=== PATIENT | female | born 1995 | race Caucasian/White ===

== ENCOUNTER 2016-09-20 13:10 | Emergency (ER) | payer OTHER ==
[2016-09-20] MEDS ORDERED: ACETAMINOPHEN IV (For NPO) 1,000 MG in EMPTY BAG 1 BAG IVPB STA (14:09)
--- NOTE | 2016-09-20 14:19 | ED ---
Female Urogenital HPI - General Chief complaint: Vaginal Bleeding Stated complaint: Vaginal Bleeding, Pelvic Pain Time Seen by Provider: 09/20/16 14:02 Source: patient, RN notes reviewed Mode of arrival: ambulatory Limitations: no limitations - History of Present Illness Initial comments: 21-year-old female presents to the emergency department with a chief complaint of fever and vaginal bleeding. Patient states that she had not had a menstrual cycle in about 5 months. Patient states that she went to the [facility] and they scheduled to have an ultrasound of her condition that she may has PCL last. Patient states this when she woke up she had low back pain she did have some changes in urination and she noticed a fever. Patient states she also has had a lot of vaginal bleeding she states she is going through a super tampon about every hour. Patient denies any lightheadedness or dizziness with this. Patient states she's never had a. This heavy before. Patient states the belly pain and back pain could be related to cramping versus something else. Patient states the fever started today she is not aware that came from [place]. Patient was concerned due to the increased bleeding that she called her OB and they referred her here. Patient denies any other significant health history. Patient denies any recent shortness of breath, chest pain, nausea vomiting, numbness or tingling, hematuria, constipation or diarrhea, headaches or visual changes, or any other current symptoms. Last Menstrual Period: 05/31/16 - Related Data Home Medications Medication Instructions Recorded Confirmed Ibuprofen [Motrin] 400 mg PO Q6HR PRN 09/20/16 09/20/16 Allergies Allergy/AdvReac Type Severity Reaction Status Date / Time No Known Allergies Allergy Verified 09/20/16 13:49 Review of Systems ROS Statement: Those systems with pertinent positive or pertinent negative responses have been documented in the HPI. ROS Other: All systems not noted in ROS Statement are negative. Past Medical History Past Medical History: No Reported History History of Any Multi-Drug Resistant Organisms: None Reported Past Surgical History: No Surgical Hx Reported Past Psychological History: No Psychological Hx Reported Smoking Status: Never smoker Past Alcohol Use History: Occasional Past Drug Use History: None Reported General Exam - General Exam Comments Initial Comments: General: The patient is awake and alert, in no distress, and does not appear acutely ill. Eye: Pupils are equal, round and reactive to light, extra-ocular movements are intact; there is normal conjunctiva bilaterally. No signs of icterus. Ears, nose, mouth and throat: There are moist mucous membranes. Neck: The neck is supple, there is no tenderness. Cardiovascular: There is a regular rate and rhythm. No murmur, rub or gallop is appreciated. Respiratory: Lungs are clear to auscultation, respirations are non-labored, breath sounds are equal. No wheezes, stridor, rales, or rhonchi. Gastrointestinal: Soft, non-distended, non-tender abdomen without masses or organomegaly noted. There is no rebound or guarding present. bilateral CVA tenderness. Bowel sounds are unremarkable. Back: There is no tenderness to palpation in the midline. There is no obvious deformity. No rashes noted. Musculoskeletal: Normal ROM, no tenderness, There is no pedal edema. There is no calf tenderness or swelling. Sensation intact. Pulses equal bilaterally 2+. Neurological: CN II-XII intact, There are no obvious motor or sensory deficits. Coordination appears grossly intact. Speech is normal. Skin: Skin is warm and dry and no rashes or lesions are noted. Psychiatric: Cooperative, appropriate mood & affect, normal judgment. Limitations: no limitations Course Vital Signs 09/20/16 09/20/16 13:24 16:21 Temperature 98.6 F 98.7 F Pulse Rate 61 67 Respiratory 17 20 Rate Blood Pressure 130/87 129/86 O2 Sat by Pulse 97 98 Oximetry Medical Decision Making - Medical Decision Making 21-year-old female presents to the emergency department with a chief complaint of vaginal bleeding this time patient's lab work is reviewed. Patient has a stable hemoglobin stable vital signs. Patient has been afebrile during the emergency department however she admits to fever at home. Urinalysis negative. Liver there is no suspicion for abdominal cause for the patient's fever. It has been months as well. At this time we did discuss that her vaginal bleeding could be from the ovarian cyst versus cyst and irregular menstrual cycle. We discussed. With her [facility] and metastatic disease for repeat ultrasound. We discussed all the patient's family's questions. The plan and everything has been answered. At this time they will be discharged home. - Lab Data Result diagrams: 09/20/16 14:50 09/20/16 14:50 Lab Results 09/20/16 09/20/16 09/20/16 Range/Units 14:50 14:50 14:50 WBC 8.9 (3.8-10.6) k/uL RBC 4.55 (3.80-5.40) m/uL Hgb 13.1 (11.4-16.0) gm/dL Hct 38.6 (34.0-46.0) % MCV 84.8 (80.0-100.0) fL MCH 28.9 (25.0-35.0) pg MCHC 34.1 (31.0-37.0) g/dL RDW 12.7 (11.5-15.5) % Plt Count 317 (150-450) k/uL Neutrophils % 68 % Lymphocytes % 22 % Monocytes % 6 % Eosinophils % 1 % Basophils % 1 % Neutrophils # 6.1 (1.3-7.7) k/uL Lymphocytes # 2.0 (1.0-4.8) k/uL Monocytes # 0.5 (0-1.0) k/uL Eosinophils # 0.1 (0-0.7) k/uL Basophils # 0.0 (0-0.2) k/uL Sodium 140 (137-145) mmol/L Potassium 3.8 (3.5-5.1) mmol/L Chloride 106 (98-107) mmol/L Carbon Dioxide 23 (22-30) mmol/L Anion Gap 11 mmol/L BUN 12 (7-17) mg/dL Creatinine 0.67 (0.52-1.04) mg/dL Est GFR (MDRD) Af Amer >60 (>60 ml/min/1.73 sqM) Est GFR (MDRD) Non-Af >60 (>60 ml/min/1.73 sqM) Glucose 84 (74-99) mg/dL Calcium 9.3 (8.4-10.2) mg/dL Total Bilirubin 0.6 (0.2-1.3) mg/dL AST 26 (14-36) U/L ALT 36 (9-52) U/L Alkaline Phosphatase 97 (38-126) U/L Total Protein 7.6 (6.3-8.2) g/dL Albumin 4.2 (3.5-5.0) g/dL Urine Color Urine Appearance (Clear) Urine pH (5.0-8.0) Ur Specific Interior (1.001-1.035) Urine Protein (Negative) Urine Glucose (UA) (Negative) Urine Ketones (Negative) Urine Blood (Negative) Urine Nitrate (Negative) Urine Bilirubin (Negative) Urine Urobilinogen (<2.0) mg/dL Ur Leukocyte Esterase (Negative) Urine RBC (0-5) /hpf Urine WBC (0-5) /hpf Ur Squamous Epith Cells (0-4) /hpf Urine HCG, Qual (Not Detectd) Influenza Type A RNA (Not Detectd) Influenza Type B (PCR) (Not Detectd) Blood Type O Positive Blood Type Recheck No Antibody Screen NEGATIVE Spec Expiration Date 09/23/2016 - 234909/20/16 09/20/16 09/20/16 Range/Units 15:00 15:00 16:14 WBC (3.8-10.6) k/uL RBC (3.80-5.40) m/uL Hgb (11.4-16.0) gm/dL Hct (34.0-46.0) % MCV (80.0-100.0) fL MCH (25.0-35.0) pg MCHC (31.0-37.0) g/dL RDW (11.5-15.5) % Plt Count (150-450) k/uL Neutrophils % % Lymphocytes % % Monocytes % % Eosinophils % % Basophils % % Neutrophils # (1.3-7.7) k/uL Lymphocytes # (1.0-4.8) k/uL Monocytes # (0-1.0) k/uL Eosinophils # (0-0.7) k/uL Basophils # (0-0.2) k/uL Sodium (137-145) mmol/L Potassium (3.5-5.1) mmol/L Chloride (98-107) mmol/L Carbon Dioxide (22-30) mmol/L Anion Gap mmol/L BUN (7-17) mg/dL Creatinine (0.52-1.04) mg/dL Est GFR (MDRD) Af Amer (>60 ml/min/1.73 sqM) Est GFR (MDRD) Non-Af (>60 ml/min/1.73 sqM) Glucose (74-99) mg/dL Calcium (8.4-10.2) mg/dL Total Bilirubin (0.2-1.3) mg/dL AST (14-36) U/L ALT (9-52) U/L Alkaline Phosphatase (38-126) U/L Total Protein (6.3-8.2) g/dL Albumin (3.5-5.0) g/dL Urine Color Colorless Urine Appearance Clear (Clear) Urine pH 5.5 (5.0-8.0) Ur Specific [place] 1.004 (1.001-1.035) Urine Protein Negative (Negative) Urine Glucose (UA) Negative (Negative) Urine Ketones Negative (Negative) Urine Blood Moderate H (Negative) Urine Nitrate Negative (Negative) Urine Bilirubin Negative (Negative) Urine Urobilinogen <2.0 (<2.0) mg/dL Ur Leukocyte Esterase Negative (Negative) Urine RBC 5 (0-5) /hpf Urine WBC <1 (0-5) /hpf Ur Squamous Epith Cells 1 (0-4) /hpf Urine HCG, Qual Not Detected (Not Detectd) Influenza Type A RNA Not Detected (Not Detectd) Influenza Type B (PCR) Not Detected (Not Detectd) Blood Type Blood Type Recheck Antibody Screen Spec Expiration Date - Radiology Data Radiology results: report reviewed, image reviewed Disposition Clinical Impression: Menometrorrhagia, Fever Disposition: HOME SELF-CARE Condition: Stable Instructions: Menstruation (ED) Additional Instructions: Please use medication as discussed. Please follow up with family doctor if symptoms have not improved over the next two days. Please return to the emergency room if your symptoms increase or worsen or for any other concerns. Referrals: Garry Paz MD [Primary Care Provider] - 1-2 days Fallon Harris MD [STAFF PHYSICIAN] - 1-2 days Time of Disposition: 16:52
[2016-09-20 15:02] LABS: Basophils % (A) 1 %; CH 29.4; CHCM 34.8; Eosinophils # (A) 0.1 k/uL (0-0.7); Eosinophils % (A) 1 %; HCT 38.6 % (34.0-46.0); HDW 2.71; HGB 13.1 gm/dL (11.4-16.0); Luc # (Auto) 0.18; Luc % (Auto) 2; Lymphocytes % (A) 22 %; MCH 28.9 pg (25.0-35.0); MCHC 34.1 g/dL (31.0-37.0); MCV 84.8 fL (80.0-100.0); Mean Platelet Volume 6.4; Monocytes # (A) 0.5 k/uL (0-1.0); Monocytes % (A) 6 %; Neutrophils # (A) 6.1 k/uL (1.3-7.7); Neutrophils % (A) 68 %; RBC 4.55 m/uL (3.80-5.40); RDW 12.7 % (11.5-15.5); WBC 8.9 k/uL (3.8-10.6); WBC (Perox) 9.34
[2016-09-20 15:12] LABS: ALT 36 U/L (9-52); AST 26 U/L (14-36); Alkaline Phosphatase 97 U/L (38-126); Anion Gap 11 mmol/L; Blood Urea Nitrogen 12 mg/dL (7-17); Calcium 9.3 mg/dL (8.4-10.2); Carbon Dioxide 23 mmol/L (22-30); Chloride 106 mmol/L (98-107); Glucose 84 mg/dL (74-99); Non-African American GFR(MDRD) >60 (>60 ml/min/1.73 sqM); Potassium 3.8 mmol/L (3.5-5.1); Sodium 140 mmol/L (137-145); Total Bilirubin 0.6 mg/dL (0.2-1.3); Total Protein 7.6 g/dL (6.3-8.2)
--- NOTE | 2016-09-20 15:34 | US ---
EXAMINATION TYPE: US transvaginal DATE OF EXAM: 09/20/2016 3:11 PM COMPARISON: NONE CLINICAL HISTORY: Pain. Back pain, pelvic pain, heavy bleeding with clots, fever, irregular menses TECHNIQUE: Transvaginal (TV) pelvic ultrasound Date of LMP: unknown EXAM MEASUREMENTS: Uterus: 8.6 x 3.6 x 3.7 cm Endometrial Stripe: 1.1 cm Right Ovary: 3.4 x 1.8 x 1.8 cm Left Ovary: 2.7 x 1.7 x 1.9 cm TECHNOLOGIST IMPRESSION: 1. Uterus: Anteverted appears wnl 2. Endometrium: appears wnl 3. Right Ovary: anechoic area adjacent to right ovary = 1.2 x 1.3 x 1.2cm 4. Left Ovary: appears wnl Spectral, color and waveform doppler imaging shows good arterial and venous flow within the ovaries ; 5. Bilateral Adnexa: anechoic area adjacent to right ovary as described above 6. Posterior cul-de-sac: free fluid noted Small to moderate amount free fluid is seen in pelvic cul-de-sac on initial images. Adjacent to right ovary there is oval hypoechoic anechoic 1.3 cm lesion could reflect slightly complex paraovarian cys t. IMPRESSION: Small to moderate amount of free fluid in pelvic cul-de-sac is nonspecific finding, diffe rential includes recent ovarian cyst rupture. Possible 1.3 cm proteinaceous or nonsimple right paraov becca cyst. Consider short-term ultrasound follow-up in 6 weeks' time.
[2016-09-20 15:41] LABS: Appearance,Urine Clear (Clear); Bilirubin,Urine Negative (Negative); Glucose,Urine (UA) Negative (Negative); Ketones,Urine Negative (Negative); Leukocyte Esterase,Urine Negative (Negative); Nitrite,Urine Negative (Negative); PH, Urine 5.5 (5.0-8.0); Particle Count 1485; Protein,Urine Negative (Negative); RBC,Urine 5 /hpf (0-5); Specific Gravity,Urine 1.004 (1.001-1.035); Squamous Epithelial Cell,Urine 1 /hpf (0-4); UA Billing (MACRO vs. MICRO) MICRO; Urobilinogen,Urine <2.0 mg/dL (<2.0); WBC,Urine <1 /hpf (0-5)
[2016-09-20] MEDS ORDERED: KETOROLAC 30 MG/ML 1 ML VIAL IVP STA (15:45)
[2016-09-20 16:22] VITALS: RESP 20
[2016-09-20 17:01] VITALS: BP 133/81; PULSE 62; TEMP 98.1
== END 2016-09-20 17:01 | disposition home or self-care (01) ==
LOC: EC 13:10
DX: N92.1 Excessive and frequent menstruation with irregular cycle (principal); R50.9 Fever, unspecified
CPT/HCPCS: 99284; 96365; 96366; 96375; 36415; 86900; 86901; 80053; 85025; 86850; 81001; 81025; 87040; 87086; 87502; 93975; 76830; J1885; J0131

== ENCOUNTER 2017-03-30 17:48 | Emergency (ER) | payer OTHER ==
[2017-03-30 18:55] VITALS: RESP 18
[2017-03-30] MEDS ORDERED: ONDANSETRON 4 MG/2 ML VIAL IVP STA (19:12)
[2017-03-30] MEDS ORDERED: SODIUM CHLORIDE 0.9% 1,000 ML IV ONE (19:12)
[2017-03-30] MEDS ORDERED: KETOROLAC 30 MG/ML 1 ML VIAL IVP STA (19:12)
[2017-03-30 19:24] LABS: Appearance,Urine Cloudy (Clear); Bacteria,Urine Rare /hpf; Bilirubin,Urine Negative (Negative); Glucose,Urine (UA) Negative (Negative); Ketones,Urine Negative (Negative); Leukocyte Esterase,Urine Negative (Negative); Mucus,Urine Rare /hpf; Nitrite,Urine Negative (Negative); Particle Count 7732; Protein,Urine Negative (Negative); Specific Gravity,Urine 1.004 (1.001-1.035); Squamous Epithelial Cell,Urine 16 /hpf (0-4); UA Billing (MACRO vs. MICRO) MICRO; Urobilinogen,Urine <2.0 mg/dL (<2.0); WBC,Urine 4 /hpf (0-5)
[2017-03-30 19:26] LABS: Basophils # (A) 0.1 k/uL (0-0.2); Basophils % (A) 1 %; CH 30.1; CHCM 35.2; Eosinophils # (A) 0.1 k/uL (0-0.7); Eosinophils % (A) 1 %; HCT 42.6 % (34.0-46.0); HDW 2.69; HGB 14.3 gm/dL (11.4-16.0); Luc # (Auto) 0.19; Luc % (Auto) 2; Lymphocytes # (A) 2.5 k/uL (1.0-4.8); Lymphocytes % (A) 24 %; MCH 28.7 pg (25.0-35.0); MCHC 33.5 g/dL (31.0-37.0); MCV 85.8 fL (80.0-100.0); Mean Platelet Volume 6.9; Monocytes # (A) 0.5 k/uL (0-1.0); Monocytes % (A) 5 %; Neutrophils # (A) 6.8 k/uL (1.3-7.7); Neutrophils % (A) 67 %; RBC 4.97 m/uL (3.80-5.40); RDW 14.9 % (11.5-15.5); WBC 10.2 k/uL (3.8-10.6); WBC (Perox) 9.55
[2017-03-30 19:34] LABS: ALT 89 U/L (9-52); AST 61 U/L (14-36); Alkaline Phosphatase 103 U/L (38-126); Anion Gap 13 mmol/L; Blood Urea Nitrogen 7 mg/dL (7-17); Carbon Dioxide 23 mmol/L (22-30); Chloride 105 mmol/L (98-107); Glucose 91 mg/dL (74-99); Non-African American GFR(MDRD) >60 (>60 ml/min/1.73 sqM); Potassium 3.9 mmol/L (3.5-5.1); Sodium 141 mmol/L (137-145); Total Bilirubin 0.4 mg/dL (0.2-1.3)
--- NOTE | 2017-03-30 20:01 | US ---
EXAMINATION TYPE: US transvaginal DATE OF EXAM: 03/30/2017 COMPARISON: NONE CLINICAL HISTORY: Pain. RLQ pain x 2 days TECHNIQUE: Transvaginal (TV) Date of LMP: 03/23/2017 EXAM MEASUREMENTS: Uterus: 7.0 x 3.1 x 4.3 cm Endometrial Stripe: 0.6 cm Right Ovary: 2.5 x 1.5 x 1.3 cm Left Ovary: 2.3 x 1.7 x 2.1 cm 1. Uterus: Anteverted wnl 2. Endometrium: wnl 3. Right Ovary: anechoic area pedunculated off ovary measuring 1.2 x 1.0 x 1.0 cm 4. Left Ovary: wnl Spectral, color and waveform doppler imaging shows good arterial and venous flow within the ovaries ; there is no evidence for ovarian torsion. 5. Bilateral Adnexa: wnl 6. Posterior cul-de-sac: wnl Anechoic area pedunculated off right ovary measuring 1.2 x 1.0 x 1.0 cm. IMPRESSION: Small right ovary and cyst. No evidence of ovarian torsion. Normal uterus and endometrium .
[2017-03-30] MEDS ORDERED: RX INFO: IV CONTRAST WAS GIVEN 1 EACH MISC MISCELLANE PRN (20:04)
[2017-03-30] MEDS ORDERED: MORPHINE SULFATE 4 MG/ML SYRINGE IVP STA (20:05)
--- NOTE | 2017-03-30 20:08 | ED ---
Abdominal Pain HPI - General Chief Complaint: Abdominal Pain Stated Complaint: pelvic pain Source: patient Mode of arrival: ambulatory Limitations: no limitations - History of Present Illness Initial Comments: Patient is a 22 old female who presents for evaluation for right lower quadrant/ right lower flank pain times one day. Past medical history as below. Patient has a history of recurrent ovarian cyst. She states that the pain is somewhat similar. She stated that the pain started at 2 AM this morning. Has been persistent. It is currently 9 out of 10. The pain radiates down to the groin. Nothing makes it better. Certain position seems to exacerbate the pain. She has associated nausea and vomiting. She states bumps in the road seemed to exacerbate the pain. No history of kidney stones. States that she has had no appetite today. She denies fever, chills, headache and changes of vision, URI symptoms, shortness breath, cough, chest pain, diarrhea, pain or burning with urination. - Related Data Home Medications Medication Instructions Recorded Confirmed Ibuprofen [Motrin] 400 mg PO Q6HR PRN 09/20/16 09/20/16 Allergies Allergy/AdvReac Type Severity Reaction Status Date / Time No Known Allergies Allergy Verified 03/30/17 18:53 Review of Systems ROS Statement: Those systems with pertinent positive or pertinent negative responses have been documented in the HPI. ROS Other: All systems not noted in ROS Statement are negative. Past Medical History Past Medical History: No Reported History Additional Past Medical History / Comment(s): Ruptured cyst History of Any Multi-Drug Resistant Organisms: None Reported Past Surgical History: No Surgical Hx Reported Past Psychological History: No Psychological Hx Reported Smoking Status: Never smoker Past Alcohol Use History: Occasional Past Drug Use History: None Reported General Exam Limitations: no limitations General appearance: alert, in no apparent distress, other (Laying on her side holding her right flank stating that she is in pain) Head exam: Present: atraumatic, normocephalic, normal inspection Eye exam: Present: normal appearance, PERRL, EOMI. Absent: scleral icterus, conjunctival injection, periorbital swelling ENT exam: Present: normal exam, mucous membranes moist Neck exam: Present: normal inspection. Absent: tenderness, meningismus, lymphadenopathy Respiratory exam: Present: normal lung sounds bilaterally. Absent: respiratory distress, wheezes, rales, rhonchi, stridor Cardiovascular Exam: Present: regular rate, normal rhythm, normal heart sounds. Absent: systolic murmur, diastolic murmur, rubs, gallop, clicks GI/Abdominal exam: Present: soft, tenderness, normal bowel sounds, other ( Limited exam as the patient will not lay on her back. Negative Robert's sign bilaterally. Pain with palpation of the right lower back right flank and right lower quadrant. Cannot fully access for McBurney sign. Negative Maurer sign. Suprapubic tenderness. No peritoneal signs. No rebound tenderness.). Absent: distended, guarding, rebound, rigid Extremities exam: Present: normal inspection, full ROM, normal capillary refill. Absent: tenderness, pedal edema, joint swelling, calf tenderness Back exam: Present: normal inspection Neurological exam: Present: alert, oriented X3, CN II-XII intact Psychiatric exam: Present: normal affect, normal mood Skin exam: Present: warm, dry, intact, normal color. Absent: rash Course Vital Signs 03/30/17 18:53 Temperature 98.8 F Pulse Rate 98 Respiratory 18 Rate Blood Pressure 142/96 O2 Sat by Pulse 98 Oximetry Medical Decision Making - Medical Decision Making Patient is a 22-year-old female with a known history of recurrent ovarian cyst to the presenting with right lower quadrant abdominal pain that radiates to her back. Similar pain to previous ovarian cysts. No blood in her urine. We'll order basic labs with Toradol, Zofran, IV fluids, ultrasound of her pelvis. 2005: Reviewed laboratory studies. No leukocytosis. Transaminitis. Patient continues to be in significant pain. Reviewed ultrasound findings which revealed a small ovarian cyst without signs of ovarian torsion. Because which, we'll investigate for acute appendicitis. We'll also order 4 mg IV morphine. 2100: Reviewed CT findings. No appendicitis. No other inflammatory process in the abdomen or pelvis. I reviewed the images personally and there seems to be a concentration of stool in the right lower quadrant with the patient is having pain. I reevaluated the patient. She states that she feels improved after the morphine. I palpated the patient's abdomen and there appears to be no peritoneal signs. The abdomen is soft. Negative McBurney sign. No so as or obturator signs present. No Rovsing sign. Discussed the entire workup with the patient. If she feels comfortable going home, I feel comfortable discharging her with close follow-up with her primary care physician. If she continues to have abdominal pain in the next 8-12 hours, will return here for reevaluation. Encouraged [id number] MiraLAX. [place] diet. Plenty of fluids. Discussed further specific signs and symptoms for further evaluation. Comfortable with discharge home and will follow-up with her primary care physician. - Lab Data Result diagrams: 03/30/17 19:07 03/30/17 19:07 Lab Results 03/30/17 03/30/17 03/30/17 Range/Units 19:07 19:07 19:07 WBC 10.2 (3.8-10.6) k/uL RBC 4.97 (3.80-5.40) m/uL Hgb 14.3 (11.4-16.0) gm/dL Hct 42.6 (34.0-46.0) % MCV 85.8 (80.0-100.0) fL MCH 28.7 (25.0-35.0) pg MCHC 33.5 (31.0-37.0) g/dL RDW 14.9 (11.5-15.5) % Plt Count 362 (150-450) k/uL Neutrophils % 67 % Lymphocytes % 24 % Monocytes % 5 % Eosinophils % 1 % Basophils % 1 % Neutrophils # 6.8 (1.3-7.7) k/uL Lymphocytes # 2.5 (1.0-4.8) k/uL Monocytes # 0.5 (0-1.0) k/uL Eosinophils # 0.1 (0-0.7) k/uL Basophils # 0.1 (0-0.2) k/uL Sodium 141 (137-145) mmol/L Potassium 3.9 (3.5-5.1) mmol/L Chloride 105 (98-107) mmol/L Carbon Dioxide 23 (22-30) mmol/L Anion Gap 13 mmol/L BUN 7 (7-17) mg/dL Creatinine 0.70 (0.52-1.04) mg/dL Est GFR (MDRD) Af Amer >60 (>60 ml/min/1.73 sqM) Est GFR (MDRD) Non-Af >60 (>60 ml/min/1.73 sqM) Glucose 91 (74-99) mg/dL Calcium 10.0 (8.4-10.2) mg/dL Total Bilirubin 0.4 (0.2-1.3) mg/dL AST 61 H (14-36) U/L ALT 89 H (9-52) U/L Alkaline Phosphatase 103 (38-126) U/L Total Protein 8.0 (6.3-8.2) g/dL Albumin 4.7 (3.5-5.0) g/dL Urine Color Urine Appearance (Clear) Urine pH (5.0-8.0) Ur Specific [place] (1.001-1.035) Urine Protein (Negative) Urine Glucose (UA) (Negative) Urine Ketones (Negative) Urine Blood (Negative) Urine Nitrite (Negative) Urine Bilirubin (Negative) Urine Urobilinogen (<2.0) mg/dL Ur Leukocyte Esterase (Negative) Urine WBC (0-5) /hpf Ur Squamous Epith Cells (0-4) /hpf Urine Bacteria (None) /hpf Urine Mucus (None) /hpf Urine Yeast (Budding) (None) /hpf Urine HCG, Qual Not Detected (Not Detectd) 03/30/17 Range/Units 19:07 WBC (3.8-10.6) k/uL RBC (3.80-5.40) m/uL Hgb (11.4-16.0) gm/dL Hct (34.0-46.0) % MCV (80.0-100.0) fL MCH (25.0-35.0) pg MCHC (31.0-37.0) g/dL RDW (11.5-15.5) % Plt Count (150-450) k/uL Neutrophils % % Lymphocytes % % Monocytes % % Eosinophils % % Basophils % % Neutrophils # (1.3-7.7) k/uL Lymphocytes # (1.0-4.8) k/uL Monocytes # (0-1.0) k/uL Eosinophils # (0-0.7) k/uL Basophils # (0-0.2) k/uL Sodium (137-145) mmol/L Potassium (3.5-5.1) mmol/L Chloride (98-107) mmol/L Carbon Dioxide (22-30) mmol/L Anion Gap mmol/L BUN (7-17) mg/dL Creatinine (0.52-1.04) mg/dL Est GFR (MDRD) Af Amer (>60 ml/min/1.73 sqM) Est GFR (MDRD) Non-Af (>60 ml/min/1.73 sqM) Glucose (74-99) mg/dL Calcium (8.4-10.2) mg/dL Total Bilirubin (0.2-1.3) mg/dL AST (14-36) U/L ALT (9-52) U/L Alkaline Phosphatase (38-126) U/L Total Protein (6.3-8.2) g/dL Albumin (3.5-5.0) g/dL Urine Color Light Yellow Urine Appearance Cloudy H (Clear) Urine pH 7.0 (5.0-8.0) Ur Specific [place] 1.004 (1.001-1.035) Urine Protein Negative (Negative) Urine Glucose (UA) Negative (Negative) Urine Ketones Negative (Negative) Urine Blood Negative (Negative) Urine Nitrite Negative (Negative) Urine Bilirubin Negative (Negative) Urine Urobilinogen <2.0 (<2.0) mg/dL Ur Leukocyte Esterase Negative (Negative) Urine WBC 4 (0-5) /hpf Ur Squamous Epith Cells 16 H (0-4) /hpf Urine Bacteria Rare H (None) /hpf Urine Mucus Rare H (None) /hpf Urine Yeast (Budding) Occasional H (None) /hpf Urine HCG, Qual (Not Detectd) Disposition Clinical Impression: Abdominal pain, Transaminitis Disposition: HOME SELF-CARE Condition: Good Instructions: Abdominal Pain (ED) Referrals: Garry Paz MD [Primary Care Provider] - 1-2 days
--- NOTE | 2017-03-30 20:46 | CT ---
EXAMINATION TYPE: CT abdomen pelvis w con DATE OF EXAM: 03/30/2017 COMPARISON: NONE HISTORY: RIGHT/LOWER ABDOMINAL PAIN WITH VOMITING CT DLP: 881.5 mGycm Automated exposure control for dose reduction was used. TECHNIQUE: Helical acquisition of images was performed from the lung bases through the pelvis. CONTRAST: Performed without Oral Contrast and with IV Contrast, patient injected with 100 mL of Omnipaque 300. FINDINGS: Lung bases are clear of infiltrate. There is no pleural effusion. Liver spleen pancreas gallbladder appear normal. Bile ducts are not dilated. There is no adrenal mass . Kidneys show satisfactory contrast opacification. There is no hydronephrosis. There is no ascites. Bladder distends smoothly. There is no free fluid in the pelvis. Uterus is anteverted. The bony struc tures are intact. I see no intestinal wall thickening. There are no dilated loops. The appendix appears normal. IMPRESSION: NEGATIVE CT SCAN OF THE ABDOMEN AND PELVIS. NORMAL APPENDIX.
[2017-03-30 21:31] VITALS: BP 121/67; PULSE 94; TEMP 97.9
== END 2017-03-30 21:31 | disposition home or self-care (01) ==
LOC: EC 17:48
DX: R10.31 Right lower quadrant pain (principal); M54.5 Low back pain; R74.0 Nonspecific elevation of levels of transaminase and lactic acid dehydrogenase [LDH]
CPT/HCPCS: 36415; 80053; 85025; 81001; 81025; 93975; 76830; 74177; 99284; 96374; 96375 ×2; 96361 ×2; J2270; J2405; J1885; Q9967